=== PATIENT | female | born 1985 | race Caucasian/White ===

== ENCOUNTER 2017-12-27 04:37 | Emergency (ER) | payer BC, OTHER ==
[2017-12-27] MEDS ORDERED: Morphine 4 MG/ML VIAL ONE ×2 (05:39→07:25)
[2017-12-27] MEDS ORDERED: Ondansetron PF 4 MG/2 ML Vial ONE (05:39)
[2017-12-27 05:40] LABS: #Eosinphils 0.3 thou/uL (0.0-0.7); #Lymphocytes 1.4 thou/uL (1.20-3.40); #Monocytes 0.3 thou/uL (0.11-0.59); #Neutrophils 3.5 thou/uL (1.40-6.50); %Basophils 0.8 % (0.0-1.0); %Eosinophils 6.1 % (0.0-10.0); %Lymphocytes 24.5 % (21.0-51.0); %Monocytes 5.8 % (0.0-10.0); %Neutrophils 62.8 % (42.0-75.0); Hemoglobin 15.9 g/dL (12.0-16.0); Mean Corpuscular HGB CONC 33.9 g/dL (32.0-36.0); Mean Corpuscular Hemoglobin 31.7 pg (27.0-31.0); Mean Corpuscular Volume 93.5 fL (78.0-98.0); Platelet Count 220 thou/uL (130-400); RBC Distribution Width 10.7 % (11.5-14.5); White Blood Cell (WBC) Count 5.6 thou/uL (4.8-10.8)
[2017-12-27 05:45] LABS: Bilirubin Negative (Negative); Blood, Urine Negative (Negative); Clarity CLEAR (Clear); Glucose, Urine (Dipstick) Negative (Negative); Leukocyte Negative (Negative); Nitrite Negative (Negative); Protein, Urine (Dipstick) Negative (Neg-Trace); Urobilinogen 0.2 mg/dL (0.2-1.0)
[2017-12-27 06:00] LABS: BHCG - Serum Negative (NEGATIVE); Pregs Control Background? CLEAR/WHITE (CLR/WHITE); Pregs Control Bar Appear? YES (CONTROL BAR)
[2017-12-27 06:03] LABS: ALT (SGPT) 24 U/L (8-55); AST (SGOT) 25 U/L (5-34); Albumin 5.1 g/dL (3.5-5.0); Alkaline Phosphatase 53 U/L (40-150); Anion Gap 12 mmol/L (10-20); BUN (Urea Nitrogen) 26 mg/dL (7.0-18.7); Bilirubin, Total 0.4 mg/dL (0.2-1.2); Calc. Creatinine Clearance 0 mL/min (70-130); Calcium 10.2 mg/dL (7.8-10.44); Carbon Dioxide 26 mmol/L (22-29); Chloride 104 mmol/L (98-107); Estimated GFR-MDRD 60; Globulin 3.2 g/dL (2.4-3.5); Glucose 98 mg/dL (70-105); Lipase 13 U/L (8-78); Potassium 3.8 mmol/L (3.5-5.1); Protein, Total 8.3 g/dL (6.0-8.3); Sodium 138 mmol/L (136-145)
[2017-12-27] MEDS ORDERED: Dicyclomine 20 MG TAB ONE (08:02)
[2017-12-27] MEDS ORDERED: Ketorolac Tromethamine 30 MG/ML VIAL ONE (08:02)
--- NOTE | 2017-12-27 08:27 | CT ---
ABDOMEN AND PELVIC CT SCAN WITH IV CONTRAST: Date: 12/27/17 HISTORY: 32-year-old female with history of pain. FINDINGS: The lung bases are clear. The visualized liver, gallbladder, pancreas, spleen, and adrenal glands are unremarkable. No renal calculus or acute obstruction. There are bilateral pars defects at L5 with fairly prominent Grade I anterolisthesis with approximately 1.0 cm of anterior displacement of L5 re lative to S1. A normal appendix is not anatomically imaged. There is no convincing evidence for acute appendicitis. Uterus is in place with an IUD. Unremarkable adnexa. IMPRESSION: No significant acute process in the abdomen or pelvis. A normal appendix is not visualized anatomical ly, but there is no convincing evidence for acute appendicitis. Minimal free fluid within the pelvis, with unremarkable uterus and adnexa, with an IUD in place. Bilateral pars defects with anterolisthes is. POS: RICARDO
[2017-12-27] MEDS ORDERED: Iopamidol 370 76% 50 ML VIAL FS ONE (10:32)
[2017-12-27] MEDS ORDERED: ISOVUE-370 76%-LOCM 1 ML ONE (10:32)
--- NOTE | 2017-12-28 11:36 | EKG ---
Test Reason : Blood Pressure : / mmHG Vent. Rate : 060 BPM Atrial Rate : 060 BPM P-R Int : 136 ms QRS Dur : 078 ms QT Int : 456 ms P-R-T Axes : 039 077 043 degrees QTc Int : 456 ms Normal sinus rhythm with sinus arrhythmia Normal ECG Confirmed by DEVON STEARNS DO ([id number]), book editor HYUN BETANCOURT ([id number]) on 12/28/2017 11:36:00 AM Referred By: Confirmed By:DEVON STEARNS DO
== END 2017-12-27 09:36 | disposition home or self-care (01) ==
LOC: ERS 04:37
DX: R10.13 Epigastric pain (principal)
CPT/HCPCS: 74177; 80053; 81003; 83690; 84703; 85025; 93005; 96361; 96374; 96375; 96376; J1885; J2270; J2405